=== PATIENT | female | born 1965 | race Caucasian/White ===

== ENCOUNTER 2022-09-21 09:29 | Outpatient (CLI) | payer OTHER, SELFPAY ==
[2022-09-21 13:57] LABS: C Reactive Protein* < 0.5 mg/dL (0.5-1.0)
[2022-09-22 17:04] LABS: Rheumatoid Factor <10 IU/mL (0-14)
[2022-09-23 01:02] LABS: Anti-Nuclear Ab(ANA)IgG ELISA None Detected (None Detected)
[2022-09-24 08:24] LABS: HLA-B27 Negative (Negative)
== END 2022-09-21 09:30 | disposition home or self-care (01) ==
PROVIDERS: PCP Physician Assistant Medical; Visit Provider Physician Assistant Medical
DX: D72.819 Decreased white blood cell count, unspecified (principal); M25.541 Pain in joints of right hand; M25.542 Pain in joints of left hand; I10 Essential (primary) hypertension
CPT/HCPCS: 86039; 86140; 86431; 86618; 86812

== ENCOUNTER 2023-02-22 17:39 | Outpatient (CLI) | payer OTHER, SELFPAY | END 2023-02-22 17:40 | disposition home or self-care (01) | PROVIDERS: PCP Physician Assistant Medical; Visit Provider Physician Assistant Medical | DX: I10 Essential (primary) hypertension (principal); D72.819 Decreased white blood cell count, unspecified; Z79.899 Other long term (current) drug therapy | CPT/HCPCS: 82306; 82607; 83516; 84550; 86200 ==

== ENCOUNTER 2023-06-16 08:13 | Outpatient (CLI) | payer OTHER, SELFPAY | END 2023-06-16 08:14 | disposition home or self-care (01) | LOC: NFLDREF 20:53 | PROVIDERS: PCP Physician Assistant Medical; Referring Provider Physician Assistant Medical; Visit Provider Physician Assistant Medical | DX: Z00.00 Encounter for general adult medical examination without abnormal findings (principal); I10 Essential (primary) hypertension; R73.09 Other abnormal glucose; E87.6 Hypokalemia; Z13.6 Encounter for screening for cardiovascular disorders | CPT/HCPCS: 80053; 80061 ==

== ENCOUNTER 2023-06-24 13:55 | Outpatient (CLI) | payer OTHER, SELFPAY ==
[2023-06-24 23:25] LABS: Chlamydia DNA Amplified* NOT DETECTED (No Detected); GC DNA Amplified* NOT DETECTED (No Detected)
== END 2023-06-24 13:56 | disposition home or self-care (01) ==
LOC: LKVREF 13:55
PROVIDERS: PCP Physician Assistant Medical; Visit Provider Physician Assistant Medical
DX: Z00.00 Encounter for general adult medical examination without abnormal findings (principal); Z11.3 Encounter for screening for infections with a predominantly sexual mode of transmission
CPT/HCPCS: 87491; 87591

== ENCOUNTER 2024-07-24 08:36 | Outpatient (CLI) | payer OTHER, SELFPAY | END 2024-07-24 08:37 | disposition home or self-care (01) | LOC: NFLDREF 07-26 10:43 | PROVIDERS: PCP Physician Assistant Medical; Referring Provider Physician Assistant Medical; Visit Provider Physician Assistant Medical | DX: E78.5 Hyperlipidemia, unspecified (principal); I10 Essential (primary) hypertension; Z13.29 Encounter for screening for other suspected endocrine disorder | CPT/HCPCS: 80053; 80061; 84443 ==

== ENCOUNTER 2025-03-05 07:57 | Outpatient (CLI) | payer OTHER, SELFPAY ==
--- NOTE | 2025-03-05 09:30 | P.ANES_ITS ---
Anesthesia Charges Start Date/Time Anesthesia Start Date: 03/05/25 Anesthesia Start Time: 08:55 Stop Date/Time Anesthesia Stop Date: 03/05/25 Anesthesia Stop Time: 09:29 Coding CPT Codes CPT Codes: NEELA LWR INTST NDSC NOS - [id number] ([id number]) P2 - PATIENT W/MILD SYST DISEASE, QK - BORE MILL OPERATOR 2-4 CNCRNT ANES PROC, QX - MATERIAL HANDLING CREW SUPERVISOR SVC W/ MD MED DIRECTION
--- NOTE | 2025-03-05 09:30 | W.ANESCHARGE ---
Anesthesia Charges Start Date/Time Anesthesia Start Date: 03/05/25 Anesthesia Start Time: 08:55 Stop Date/Time Anesthesia Stop Date: 03/05/25 Anesthesia Stop Time: 09:29 Coding CPT Codes CPT Codes: NEELA LWR INTST NDSC NOS - [id number] ([id number]) P2 - PATIENT W/MILD SYST DISEASE, QK - TEACHER PRESCHOOL 2-4 CNCRNT ANES PROC, QX - BLIND STITCH MACHINE OPERATOR SVC W/ MD MED DIRECTION
--- NOTE | 2025-03-05 09:57 | P.ANES_ITS ---
Anesthesia Charges Start Date/Time Anesthesia Start Date: 03/05/25 Anesthesia Start Time: 08:55 Stop Date/Time Anesthesia Stop Date: 03/05/25 Anesthesia Stop Time: 09:29 Coding CPT Codes CPT Codes: NEELA LWR INTST NDSC NOS - [id number] ([id number]) QK - LADLE REPAIRMAN 2-4 CNCRNT NEELA PROC, QX - JEWELRY ENAMELER SVC W/ MD MED DIRECTION, P2 - PATIENT W/MILD SYST DISEASE
--- NOTE | 2025-03-05 09:57 | W.ANESCHARGE ---
Anesthesia Charges Start Date/Time Anesthesia Start Date: 03/05/25 Anesthesia Start Time: 08:55 Stop Date/Time Anesthesia Stop Date: 03/05/25 Anesthesia Stop Time: 09:29 Coding CPT Codes CPT Codes: NEELA LWR INTST NDSC NOS - [id number] ([id number]) QK - SODA MAKER 2-4 CNCRNT NEELA PROC, QX - BEER MERCHANT SVC W/ MD MED DIRECTION, P2 - PATIENT W/MILD SYST DISEASE
== END 2025-03-05 07:58 | disposition home or self-care (01) ==
LOC: OP CLINIC 07:58
PROVIDERS: PCP Physician Assistant Medical; Visit Provider Surgery
DX: Z12.11 Encounter for screening for malignant neoplasm of colon (principal); Z86.0100 Personal history of colon polyps, unspecified; D12.2 Benign neoplasm of ascending colon; K64.8 Other hemorrhoids; K57.30 Diverticulosis of large intestine without perforation or abscess without bleeding
CPT/HCPCS: 00811; 00812; 45385; 88305; J2704